=== PATIENT | male | born 1960 | race Caucasian/White ===

== ENCOUNTER → 2018-05-03 | Outpatient (CLI) | payer OTHER ==
[~2018-05-03] MED LIST: ALBUTEROL SULFATE 0.083% NEB 2.5 MG/3 ML AMPUL NEB ONE
--- NOTE | 2018-05-05 11:24 | Pulmonary Function Test ---
Pulmonary Function Test Date of Procedure:: 05/05/18 INDICATION:: Dyspnea on exertion Referring Provider: Dr. Savanah Lieberman [employer] Specialist: Sarah Foss DIRECTOR OF CONSERVATION - Report Spirometry: FVC 3.54 L 91% postbronchodilator 3 4.30 L 10% FEV1 1.52 L 48% postbronchodilator 2.03 L 64% FEV1/FVC % 43 postbronchodilator 47 Predicted 81% FEF 25-75% 0.42 L 13% postbronchodilator 0.70 L 21% Impression: Severe obstructive ventilatory defect with good response to bronchodilator therapy
== END ==
LOC: RT 12:18
DX: R06.00 Dyspnea, unspecified (principal); C61 Malignant neoplasm of prostate
CPT/HCPCS: 94060